=== PATIENT | female | born 1995 | race Caucasian/White ===

== ENCOUNTER 2021-08-19 08:13 | Emergency (ER) | payer SELFPAY ==
[~2021-08-19] VITALS: Ht 157.5 cm; Wt 61.2 kg
[2021-08-19 08:16] VITALS: BP 123/83
--- NOTE | 2021-08-19 08:20 | NUR ---
Patient ambulated to bed 6.
--- NOTE | 2021-08-19 08:33 | NUR ---
26 Y/O F C/O RIGHT LOWER ABD PAIN 10/10 SINCE 5 AM THIS MORNING. PT HAD DIARRHEA SINCE YESTERDAY AND N/V STARTED THIS MORNING. NKA OR PMH
[2021-08-19] MEDS ORDERED: KETOROLAC 60 MG/2 ML VIAL IM ONE (08:45)
[2021-08-19] MEDS ORDERED: KETOROLAC 30 MG/ML VIAL ONE (09:02)
[2021-08-19] MEDS ORDERED: KETOROLAC 30 MG/ML VIAL IVP ONE (09:10)
[2021-08-19] MEDS ORDERED: ONDANSETRON 4 MG/2 ML VIAL IVP ONE (09:10)
[2021-08-19] MEDS ORDERED: NACL 0.9% 1,000 ML IV SCH (09:10)
--- NOTE | 2021-08-19 09:22 | NUR ---
URINE COLLECTED AND WALKED TO THE LAB.
[2021-08-19 09:27] LABS: BASOPHILS % (AUTO) 0.5 % (0.0-2.0); EOSINOPHILS % (AUTO) 0.2 % (0.0-4.0); HEMATOCRIT 36.9 % (36-48); HEMOGLOBIN 12.7 g/dL (12.0-16.0); LYMPHOCYTES # (AUTO) 0.8 K/uL (2.5-16.5); LYMPHOCYTES % (AUTO) 8.1 % (20.5-51.1); MEAN CORPUSCULAR HEMOGLOBIN 31 pg (27-31); MEAN CORPUSCULAR HGB CONC 34 g/dL (33-37); MEAN CORPUSCULAR VOLUME 91.3 fL (80-94); MONOCYTES # (AUTO) 0.3 K/uL (0.8-1.0); MONOCYTES % (AUTO) 3.6 % (1.7-9.3); NEUTROPHILS # (AUTO) 8.2 K/uL (1.8-7.7); NEUTROPHILS % (AUTO) 87.6 % (42.2-75.2); PLATELET COUNT (AUTO) 298 K/uL (140-450); RED BLOOD CELL COUNT(AUTO) 4.04 MIL/uL (4.20-5.40); RED CELL DISTRIBUTION WIDTH 12.5 % (11.6-13.7); WHITE BLOOD COUNT (AUTO) 9.3 K/uL (4.8-10.8)
[2021-08-19 09:38] LABS: APPEARANCE,URINE CLEAR (CLEAR); BILIRUBIN,URINE NEGATIVE (NEGATIVE); BLOOD, URINE 3+ (NEGATIVE); COLOR,URINE YELLOW (YELLOW); LEUKOCYTE ESTERASE ,URINE NEGATIVE (NEGATIVE); NITRITE, URINE NEGATIVE (NEGATIVE); UGLUCOSE NEGATIVE (NEGATIVE)
--- NOTE | 2021-08-19 09:54 | NUR ---
PT TO CT SCAN VIA [facility].
[2021-08-19] MEDS ORDERED: MORPHINE SULFATE 4 MG/ML SYR IVP ONE (10:15)
--- NOTE | 2021-08-19 10:45 | NUR ---
LAB AT BEDSIDE FOR REDRAW OF LABS.
[2021-08-19 11:42] LABS: ALBUMIN 3.5 g/dL (3.4-5.0); ANION GAP 11.1 (8-16); CARBON DIOXIDE 25.9 mmol/L (21-32); CREATININE 0.7 mg/dL (0.6-1.3); TOTAL BILIRUBIN 0.5 mg/dL (0.0-1.0)
[2021-08-19 11:47] LABS: RBC,URINE 0-5 /HPF (0-5); WBC,URINE 0-5 /HPF (0-5)
[2021-08-19 11:48] LABS: CALCIUM OXALATE CRYSTALS,UR None Seen /HPF (None Seen); COARSE GRANULAR CASTS,URINE None Seen /LPF (None Seen); FINE GRANULAR CASTS,URINE None Seen /LPF (None Seen); HYALINE CASTS, URINE None Seen /LPF (None Seen); OTHER CASTS, URINE None Seen /LPF (None Seen); OTHER CRYSTALS,URINE None Seen /HPF (None Seen); RED BLOOD CELL CASTS,URINE None Seen /LPF (None Seen); TRICHOMONAS,URINE None Seen /HPF (None Seen); TRIPLE PHOSPHATE CRYSTAL,UR None Seen /HPF (None Seen); URIC ACID CRYSTALS,URINE None Seen /HPF (None Seen); URINE AMORPHOUS URATE None Seen /HPF (None Seen); WAXY CASTS,URINE None Seen /LPF (None Seen); YEAST,URINE None Seen /HPF (None Seen)
[2021-08-19] MEDS ORDERED: IBUP-2213 PO (12:11)
[2021-08-19] MEDS ORDERED: ONDA8TAB87 PO (12:11)
[2021-08-19] MEDS ORDERED: TAMS0.4C96 PO (12:11)
[2021-08-19] MEDS ORDERED: ACET-8386 PO (12:11)
[2021-08-19 12:25] VITALS: BP 111/79
--- NOTE | 2021-08-19 12:30 | NUR ---
Patient discharged with v/s stable. Written and verbal after care instructions given and explained. Patient alert, oriented and verbalized understanding of instructions. Ambulatory with steady gait. All questions addressed prior to discharge. ID band removed. Patient advised to follow up with PMD. Rx of HYDRODODONE/ACETEMINOPHEN, IBUPROFEN, ONDANSETRON HCI, TAMSULOSIN HCI given. Opportunity to ask questions provided and answered.
--- NOTE | 2021-08-19 12:31 | NUR ---
The patient's care was reviewed and supervised by Zoila Cheek RN.
== END 2021-08-19 12:30 | disposition home or self-care (01) ==
LOC: MED 08:13
DX: R10.31 Right lower quadrant pain (principal); R11.2 Nausea with vomiting, unspecified; R68.83 Chills (without fever)
CPT/HCPCS: 36415; 74177; 80053; 81001; 81025; 83690; 85025; 96361; 96374; 96375; 99285; J1885; J2270; J2405; J7030; Q9967